=== PATIENT | male | born 1955 | race Caucasian/White ===

== ENCOUNTER → 2017-02-20 | Outpatient (CLI) | payer OTHER ==
[~2017-02-20] VITALS: Ht 152.4 cm; Wt 108.1 kg
[2017-02-20 15:09] VITALS: BP 138/87; PULSE 73; Ht 152.4 cm; Wt 108.1 kg
== END | disposition home or self-care (01) ==
LOC: C.NEUR 14:33
PROVIDERS: ATTEND Physician Assistant
DX: G47.33 Obstructive sleep apnea (adult) (pediatric) (principal)

== ENCOUNTER → 2017-05-02 | Outpatient (CLI) | payer OTHER ==
[2017-05-02 13:26] LABS: ESTIMATED AVERAGE GLUCOSE 131 mg/dl; HA1C FLAG Normal (Normal)
== END | disposition home or self-care (01) ==
LOC: C.LABPVFM 08:01
PROVIDERS: ATTEND Family Medicine
DX: K76.0 Fatty (change of) liver, not elsewhere classified (principal); R73.03 Prediabetes

== ENCOUNTER → 2017-11-11 | Outpatient (CLI) | payer OTHER ==
--- NOTE | 2017-11-11 08:37 | DIAGNOSTIC IMAGING REPORT ---
RIGHT ANKLE 3 VIEWS HISTORY: RIGHT ANKLE PAIN COMPARISON: None. FINDINGS: No acute fracture or dislocation within the right ankle. Diffuse soft tissue swelling. Small ossific densities at the distal tip of the lateral malleolus consistent with old avulsion injuries. There is also irregularity at the posterior malleolus suggestive of an old, healed fracture. Plantar and posterior calcaneal spurs are noted. No radiopaque foreign bodies. IMPRESSION: 1. No acute fracture or dislocation within the right ankle. 2. Old posttraumatic changes as described above. 3. Diffuse soft tissue swelling. Electronically signed by: Neil Galvan M.D. 11/11/2017 8:35 AM Dictated Date/Time: 11/11/2017 8:33 AM
== END ==
LOC: C.RADBC 08:01
PROVIDERS: ATTEND Nurse Practitioner Adult Health
DX: M25.571 Pain in right ankle and joints of right foot (principal)

== ENCOUNTER 2025-01-20 05:19 | Observation (INO) ==
--- NOTE | 2024-12-21 09:00 | PAT Medication Instructions ---
Medication Instructions Date of Service December 21, 2024 Home Medications Medication Instructions Recorded CPAP Supplies See Rx Instructions .Route 02/21/21 .COMPLEX #1 ea CPAP Supplies #1 ea 06/18/21 metformin 750 mg tablet,extended 750 mg PO BID #180 tabs 01/06/24 release 24 hr atorvastatin 20 mg tablet 20 mg PO QPM #90 tabs 07/07/24 pantoprazole 40 mg tablet,delayed 40 mg PO HS #90 tabs 07/11/24 release (Protonix) tamsulosin 0.4 mg capsule (Flomax) 0.4 mg PO DAILY #90 caps 08/18/24 semaglutide 0.25 mg or 0.5 mg (2 0.5 mg (0.736 mL) subcut .weekly 10/18/24 mg/3 mL) subcutaneous pen injector #4 syringes (Ozempic) meloxicam 15 mg tablet See Rx Instructions .Route .QOD metformin 750 mg tablet,extended release 24 hr 750 mg PO BID atorvastatin 20 mg tablet 20 mg PO QPM pantoprazole 40 mg tablet,delayed release (Protonix) 40 mg PO HS tamsulosin 0.4 mg capsule (Flomax) 0.4 mg PO DAILY semaglutide 0.25 mg or 0.5 mg (2 mg/3 mL) subcutaneous pen injector (Ozempic) 0.5 mg (0.736 mL) subcut .weekly Continue as directed tamsulosin 0.4 mg capsule (Flomax) 0.4 mg PO DAILY ASK your surgeon for instructions meloxicam 15 mg tablet See Rx Instructions .Route .QOD STOP 7 days prior to surgery semaglutide 0.25 mg or 0.5 mg (2 mg/3 mL) subcutaneous pen injector (Ozempic) 0.5 mg (0.736 mL) subcut .weekly DO NOT take the morning of surgery metformin 750 mg tablet,extended release 24 hr 750 mg PO BID Take evening before surgery metformin 750 mg tablet,extended release 24 hr 750 mg PO BID atorvastatin 20 mg tablet 20 mg PO QPM pantoprazole 40 mg tablet,delayed release (Protonix) 40 mg PO HS MORNING OF SURGERY: NOTHING TO EAT OR DRINK AFTER MIDNIGHT Other Notes If you have any questions please call us at [phone] or [phone] or [phone] or [phone]
--- NOTE | 2024-12-27 12:50 | Anesthesiology Consultation ---
Date of Service December 27, 2024 Assessment & Plan (1) Encounter for pre-operative examination: Chart Review Chart Review: Acceptable Risk for Surgery (pending review of routine PCP appt 01/03/25) and Patient seen in Pre Admission Testing - Awaiting routine PCP appt 01/03/25 ([place]) - Check BSG AM DOS Last dose of Ozempic scheduled 01/10/25- will be off Ozempic x 10 days by DOS on 01/20/25. Pt currently scheduled as 23 hours observation. If surgeon decides to change patient to [facility], patient would be acceptable risk for TKA, pending patient is motivated, has good support and surgeon's office completes [facility] preop requirements. Per PAT appt on 12/27/24, no recent illness/disease exposures, illness related symptoms, or recent illness/disease positive tests. Will leave to surgeon's discretion if preop Covid testing needed. Patient will be traveling to [place] 01/11/25-01/16/25 Left shoulder scope, RCR 10/30/22= Done under [facility] with Grade 2 view with MAC #3. ETT #7.5. Smooth IV induction, atraumatic DL x 1 intubation Teaching & Discussion Pre-Anesthesia Teaching/Discussion Notes: Instructed NPO after midnight before surgery,except medications with 15 cc of water. Medication instructions provided according to the PAT guidelines. History Surgery Operation Date: 01/20/25 08:00 Proposed Procedures p Right Total Knee Arthroplasty - Aditya Cho, Height/Weight Height: 5 ft 10 in Weight: 103.1 kg Allergies Allergy/AdvReac Type Severity Reaction Status Date / Time pollen extracts Allergy Unknown SNEEZING/ Verified 12/19/24 14:47 OCC COUGH No Known Drug Allergies Allergy Verified 12/19/24 14:47 Medications Home Medications Medication Instructions Recorded Confirmed Last Taken CPAP Supplies See Rx Instructions .Route 02/21/21 08/10/24 02/10/22 22:00 .COMPLEX #1 ea CPAP Supplies #1 ea 06/18/21 08/10/24 Unknown meloxicam 15 mg tablet See Rx Instructions .Route .QOD 08/31/23 12/19/24 Unknown metformin 750 mg tablet,extended 750 mg PO BID #180 tabs 01/06/24 12/19/24 Unknown release 24 hr atorvastatin 20 mg tablet 20 mg PO QPM #90 tabs 07/07/24 12/19/24 Unknown pantoprazole 40 mg tablet,delayed 40 mg PO HS #90 tabs 07/11/24 12/19/24 Unknown release (Protonix) tamsulosin 0.4 mg capsule (Flomax) 0.4 mg PO DAILY #90 caps 08/18/24 12/19/24 Unknown semaglutide 0.25 mg or 0.5 mg (2 0.5 mg (0.736 mL) subcut .weekly 10/18/24 12/19/24 Unknown mg/3 mL) subcutaneous pen injector #4 syringes ([employer]) Past Medical History Medical History Barth esophagus stable - follows with GI doctor every 5-10 years BPH (benign prostatic hyperplasia) Diabetes Esophageal dysphagia rare GERD (gastroesophageal reflux disease) well controlled and stable Hepatic steatosis Hiatal hernia History of COVID-19 2019 > not hospitalized - symptoms resolved Hyperlipidemia Osteoarthritis Seasonal allergies Sleep apnea CPAP Exercise / Class Metabolic Activity II 4-5 Yardwork/Stairs/Walk up hill (one flight of stairs - no chest pain or SOB ) Past Family History Family History Mother Diabetes Myocardial infarction Father Diabetes Prostate cancer Brother Malignant neoplasm of esophagus Denies family history of Colon cancer Ovarian cancer Breast cancer Past Surgical History Surgical History H/O umbilical hernia repair (08/16/19) Open umbilical hernia repair. Dr. Lee 08/16/19 History of colonoscopy History of esophagogastroduodenoscopy (EGD) History of vasectomy Hx of tooth extraction S/P rotator cuff repair For L RTC tear Past Anesthesia History No Hx of Anesthesia Complications and No Family Hx of Anesthesia Complications (with exception with father- slow to wake - no reintubation or ICU stay ) History of PONV No Hx of PONV and No Hx of Motion Sickness Social History Smoking Status: Former smoker tobacco type: cigarettes Do You Dip or Chew Tobacco: No Smoking End Date: quit 30+ yrs ago Hx Alcohol Use: Yes Alcohol type: beer, wine and hard liquor alcohol intake frequency: a few times a week Hx Substance Use: No substance use type: does not use Review of Systems Patient denies chest pain, shortness of breath, dyspnea on exertion, cough, wheezing, palpitations. No hx of seizures, stroke, AL. No hx of blood clots or blood transfusions Physical Exam Vital Signs VITALS BP 134/77 P 80 TEMP 97.4 SP02 96% RESP 16 Constitutional no acute distress ENMT Mouth: no TMJ clicking Thyromental Distance: < 3.5 Finger Breadths (3.0) Mallampati Class: III Full dentures on top and bottom Neck neck extension not limited Respiratory normal respiratory effort; no respiratory distress Auscultation: lungs clear to auscultation bilaterally; no wheezes Cardiovascular Rate/Rhythm: regular rate and regular rhythm Heart Sounds: no murmur Vessels: no carotid bruit Musculoskeletal Spine: no pain with cervical ROM Extremities: extremities normal to inspection Psychiatric Orientation: alert Lab Results Anesthesia Preop Results Results Anesthesia Widget: WBC 4.76 K/ul (4.8-10.8) L 12/27/24 Hgb 14.1 g/dl (14.0-18.0) 12/27/24 Hct 40.5 % (42.0-52.0) L 12/27/24 Plt 143 K/uL (130-400) 12/27/24 Na 140 mmol/L (136-145) 12/27/24 K 4.2 mmol/L (3.5-5.1) 12/27/24 Cl 107 mmol/L (98-107) 12/27/24 CO2 28 mmol/L (21-32) 12/27/24 BUN 20 mg/dl (6-23) 12/27/24 Creat 1.00 mg/dl (0.6-1.4) 12/27/24 Glucose Level 91 mg/dl (70-99(Fasting)) 12/27/24 PT 9.9 Seconds (9.0-12.0) 12/27/24 PTT 29 Seconds (21-31) 12/27/24 INR 0.9 (0.9-1.1) 12/27/24 HA1c 6.8 % (4.5-5.6) H 12/27/24 Blood Type O Positive 12/27/24 Antibody Screen NEGATIVE 12/27/24 Testing Electrocardiogram Date: 12/27/24 SR with 1st degree AV block at 78bpm. Left anterior fascicular block. When compared to EKG from Oct 24, 2022- no significant change was found per cardio Chest X-Ray Date: 12/27/24 Findings: + NAD No active cardiopulmonary disease. No other abnormalities noted. Mild degenerative changes in the thoracic spine.
[2025-01-20] MEDS: LR 60ML/HR IV SCH (05:51)
[2025-01-20] MEDS: LR 500ML BOLUS, THEN 15ML/HR IV SCH (05:51)
[2025-01-20] MEDS: dexAMETHasone**PF** 10 MG/ML VIAL IV SCH (05:52)
[2025-01-20] MEDS: FAMOTIDINE 20 MG TAB PO SCH (05:52)
[2025-01-20] MEDS: ACETAMINOPHEN 500 MG TAB PO SCH ×2 (05:52→14:10)
[2025-01-20] MEDS: GABAPENTIN 300 MG CAP PO SCH (05:52)
[2025-01-20] MEDS ORDERED: fentaNYL citrate PF 100 MCG/2 ML VIAL ONE (06:18)
[2025-01-20] MEDS ORDERED: MIDAZOLAM HCL 1 MG/ML 2ML VIAL ONE ×2 (06:18→07:13)
[2025-01-20] MEDS ORDERED: LIDOCAINE 2% 2 ML VIAL/AMP(20MG/ML) INFIL ONE ×2 (06:18→06:37)
[2025-01-20] MEDS ORDERED: BUPIVACAINE 0.5 % 5 MG/1 ML PF 10ML VIAL ONE (06:28)
[2025-01-20] MEDS ORDERED: ROPIVACAINE 0.5% 5 MG/ML 30 ML VIAL ONE (06:28)
[2025-01-20] MEDS ORDERED: DexMEDEtomidine HCL IV 100 MCG/ML VIAL IV ONE (06:36)
[2025-01-20] MEDS ORDERED: ONDANSETRON INJ 2 MG/ML 2 ML VIAL ONE (06:37)
[2025-01-20] MEDS ORDERED: PROPOFOL IV EMULSION 10 MG/ML 20 ML VIAL IV ONE ×2 (06:38)
[2025-01-20] MEDS: TRANEXAMIC ACID 1,000 MG **IV Pre-op IV SCH (06:40)
--- NOTE | 2025-01-20 06:48 | History & Physical Bridge Note ---
Date of Service January 20, 2025 History & Physical Bridge Note I have examined the patient, reviewed the History & Physical and in the interval since the performance of the History & Physical I have noted the following changes of clinical significance: no changes noted
[2025-01-20] MEDS: ceFAZolin 2000MG 2,000 MG/15 ML SYR IV SCH ×2 (06:58→14:16)
[2025-01-20] MEDS ORDERED: fentaNYL citrate PF 100 MCG/2 ML VIAL IV PRN (07:20)
[2025-01-20] MEDS ORDERED: ePHEDrine sulfate 50 MG/ML AMP IV PRN (07:20)
[2025-01-20] MEDS ORDERED: ONDANSETRON INJ 2 MG/ML 2 ML VIAL IV PRN ×2 (07:20→10:30)
[2025-01-20] MEDS ORDERED: ATROPINE SULFATE 0.1 MG/ML 10ML SYR IV PRN (07:20)
[2025-01-20] MEDS: ROPIV 0.5% 246mg, Ketorolac 30mg, EPINEPHrine 0.5mg in NSS INFIL SCH (07:29)
[2025-01-20] MEDS: ORTHO JOINT ANESTHETIC ONE (07:29)
[2025-01-20] MEDS: TRANEXAMIC ACID 1,000 MG **IV Intra-op IV SCH (08:01)
--- NOTE | 2025-01-20 08:10 | Operative Report ---
PG Post Operative Report Pre & Post Diagnosis Operation Date: 01/20/25 07:00 Pre-Op Diagnosis: Right Knee Osteoarthritis Post-Op Diagnosis: Right Knee Osteoarthritis I identified the patient and participated in the time-out.: Yes Procedure Operation Date: 01/20/25 07:00 Actual Procedures p Right Total Knee Arthroplasty(Right) - Aditya Cho DO Surgeon Aditya Cho DO Emissions Inspector Max Waite PA-C Estimated Blood Loss 50 Findings Consistent with Post-Op Diagnosis Specimens Right femoral tibial bone Description of Procedure Implants used: I used a [employer] total knee arthroplasty system with a size 9 standard femur, E tibia, 34 oval patella, and a size 11 medial congruent polyethylene bearing. All components were cemented in place with Biomet cement. Vladimir arrived [facility] for the above procedure. He was seen in the preoperative holding area and the operative extremity was identified and signed. He was given a preoperative antibiotic, TXA, a spinal anesthetic and an adductor nerve block. He was taken back to the operating room and laid on the table in supine position. He was given basic sedation. The operative knee was then prepped and draped in sterile fashion. A timeout was done, and the patient and the operative extremity was properly identified. A midline incision was made directly over the patella. Dissection was taken down to the extensor mechanism. A medial parapatellar arthrotomy was used. The medial retinaculum was released and the fat pad was mostly excised. The knee was flexed and the ACL, PCL, and meniscus were removed. A drill was sent down the center of the femoral canal followed by an intramedullary katie. Off that katie a distal femoral cutting block was placed. 9 mm was resected off the distal femur at 5 of valgus. A posterior referencing AP sizing guide was then placed on the distal femur. The femur measured to be a size 9. 2 drill holes were placed in 3 of external rotation. A 4-in-1 cutting block was then impacted into place. Anterior, posterior, and chamfer cuts were then made. The proximal tibia was then exposed. An external tibial alignment guide was placed. A tibial cut guide was then anchored in place and the proximal tibia was then resected. The posterior aspect of the knee was then opened up and any additional meniscus fragments and osteophytes were removed. The tibia measured to be a size E. The tibial plate was then placed in the appropriate rotation and the tibia was drilled and punched. Trial components were then placed. I used a size 11 medial congruent polyethylene insert. The knee was brought through a full range of motion and felt to be stable. The peg holes for the femoral component were then drilled. The patella was then everted and 9 mm was resected off the posterior aspect of the patella. The patella measured to be a size 34 oval. 3 peg holes were then drilled. A trial patella was placed. The knee was once again brought through a full range of motion and felt to be stable. Trial components were then removed. The surrounding soft tissues were injected with 100 cc of an orthopedic pain control cocktail. All components were then cemented into place with Biomet cement. The final polyethylene insert was then snapped into place. Once cement was dry the tourniquet was deflated. Hemostasis was obtained. The joint was then irrigated with normal saline solution. The medial parapatellar arthrotomy was then closed with #1 Vicryl suture. The skin was closed with 2-0 Vicryl, 3-0V lock suture, and diana. A soft compressive dressing was placed. He was then transferred to a hospital bed and taken to the postanesthesia care unit in stable condition. He tolerated the procedure well. Max Waite PA-C, was present for the entire procedure. He was critical for patient positioning, prepping, draping, retraction exposure, wound closure and application of sterile dressing. I attest to the content of the Intraoperative Record and any orders documented therein. Any exceptions are noted below.
--- NOTE | 2025-01-20 09:03 | XRay Report ---
XR knee RT 1 or 2V routine CLINICAL HISTORY: Surgical Post Op COMPARISON: 05/11/2024 FINDINGS: Right knee prosthesis shows no hardware complication. There is expected soft tissue gas. S kin diana are present. IMPRESSION: Unremarkable postoperative exam. ACT 112: Negative or not required by law. Electronically signed by: Sourav Salinas M.D. 01/20/2025 9:01 AM
[2025-01-20] MEDS ORDERED: PHARMACY GLYCEMIC MGMT CONSULT PRN (10:30)
[2025-01-20] MEDS ORDERED: NALOXONE HCL 0.4 MG/1 ML VIAL/CARP IV PRN (10:30)
[2025-01-20] MEDS ORDERED: NON-FORMULARY MEDICATION (Metformin 750 mg tablet extended release 24 hr) PO SCH (10:30)
[2025-01-20] MEDS ORDERED: oxyCODONE HCL IR 5 MG TAB (IMMEDIATE RELEASE) PO PRN (10:30)
[2025-01-20] MEDS ORDERED: METOCLOPRAMIDE HCL INJ 5 MG/ML 2 ML VIAL IV PRN (10:30)
[2025-01-20] MEDS ORDERED: MAGNESIUM HYDROXIDE SUSP 30 ML UDC PO PRN (10:30)
[2025-01-20] MEDS ORDERED: NON-FORMULARY MEDICATION (Cpap Supplies misc) SCH (10:30)
[2025-01-20] MEDS ORDERED: NON-FORMULARY MEDICATION (Semaglutide [Ozempic] 0.25 mg or 0.5 mg (2 mg/3 mL) pen injector SQ SCH (10:30)
[2025-01-20] MEDS ORDERED: HYDROmorphone INJ 0.5 MG/0.5 ML SYR IV PRN (10:30)
[2025-01-20] MEDS ORDERED: bisacodyL 10 MG SUPP PR PRN (10:30)
--- NOTE | 2025-01-20 11:00 | Anesthesiology Progress Note ---
Date of Service January 20, 2025 Anesthesia Post Procedure Vital Signs Vital Signs: Temp Pulse Pulse Resp BP Pulse Ox O2 Del Method 01/20/25 10:38 97.5 F L 72 16 115/71 96 Nasal Cannula 01/20/25 10:34 Nasal Cannula 01/20/25 09:50 72 16 118/67 95 Nasal Cannula 01/20/25 09:35 97.7 F 72 16 115/69 95 Nasal Cannula 01/20/25 09:25 73 12 120/69 94 Nasal Cannula 01/20/25 09:15 71 16 117/69 94 Room Air 01/20/25 09:05 74 18 110/66 97 Oxymask 01/20/25 08:55 74 20 113/71 97 Oxymask 01/20/25 08:45 74 16 106/66 97 Oxymask 01/20/25 08:35 75 20 102/70 97 Oxymask 01/20/25 08:28 97.2 F L 82 18 101/64 95 Oxymask 01/20/25 05:44 97.5 F L 79 18 152/93 H 97 Room Air O2 Flow Rate 01/20/25 10:38 2 01/20/25 10:34 2 01/20/25 09:50 2 01/20/25 09:35 2 01/20/25 09:25 2 01/20/25 09:15 01/20/25 09:05 4 01/20/25 08:55 4 01/20/25 08:45 4 01/20/25 08:35 4 01/20/25 08:28 6 01/20/25 05:44 Transfer of Care Handoff Completed per policy Notes Mental Status: alert / awake / arousable and participated in evaluation Patient Amnestic to Procedure: Yes Nausea / Vomiting: adequately controlled Pain: adequately controlled Airway Patency, RR, SpO2: stable & adequate BP & HR: stable & adequate Hydration State: stable & adequate Neuraxial Anesthesia: was administered and sensory block is resolving Anesthetic Complications: no major complications apparent and Pt Satisfied with anesthetic care
[2025-01-20] MEDS ORDERED: INSULIN ASPART PER UNIT CHARGE SC SCH (11:30)
[2025-01-20] MEDS: MULTIVITAMIN TAB PO SCH (12:21)
[2025-01-20] MEDS: TAMSULOSIN HCL 0.4 MG CAP PO SCH (12:21)
[2025-01-20] MEDS: DOCUSATE SODIUM 100 MG CAP PO SCH (12:21)
[2025-01-20] MEDS: KETOROLAC TROMETHAMINE 15 MG/ML VIAL IV SCH (12:23)
[2025-01-20] MEDS ORDERED: ceFAZolin 1000MG 1,000 MG/7.5 ML SYR IV SCH (14:30)
[2025-01-20] MEDS: metFORMIN HCL 500 MG TAB PO SCH (16:36)
[2025-01-20] MEDS: SENNA 8.6 MG TAB PO SCH (20:42)
[2025-01-20] MEDS: ATORVASTATIN 20 MG TAB PO SCH (20:43)
[2025-01-20] MEDS: ASPIRIN 81 MG ECTAB PO SCH (20:43)
[2025-01-20] MEDS: PANTOprazole 40 MG TAB PO SCH (20:43)
[2025-01-21 05:38] VITALS: TEMP 97.7
[2025-01-21 07:23] VITALS: RESP 16; O2SAT 97
[2025-01-21 07:46] VITALS: BP 132/84; PULSE 81
--- NOTE | 2025-01-21 08:19 | Orthopedic Progress Note ---
Date of Service January 21, 2025 Assessment & Plan (1) Status post right knee replacement: Overall he is doing very well. He is not having much pain in the right knee. He will be seen by physical therapy today for ambulation and range of motion exercises. The nursing staff can change his dressing after physical therapy. He is on aspirin for DVT prophylaxis. He can be discharged home later today. He will follow-up with orthopedics in 2 weeks. Jaimee Gilbert was seen and examined at bedside this morning. Overall is doing fairly well. He is not having too much pain in the right knee. He has been up and ambulating to the bathroom. He has no complaints.. Review of Systems All systems reviewed & are unremarkable except as noted in HPI & below. Physical Exam On physical exam of the right knee, the dressing is clean and dry. His leg is out full extension. He has active dorsiflexion plantarflexion of his right ankle.. Results & Data Results & Data Laboratory Results . Diagnostic Findings Postoperative x-rays of the right knee show the prosthesis to be in anatomic alignment without any evidence of fracture complication, or loosening.. PG Care Time/CCT Total # of Minutes Spent Total Time Spent with Patient: Total time spent is greater than 50% in coordination of care (as documented) at patient's floor/unit and/or counseling patient: Coding Level of Care Code 18822 Post Operative Follow-Up Diagnoses Status post right knee replacement Z96.651
--- NOTE | 2025-01-21 08:20 | Discharge Summary ---
Date of Service January 21, 2025 Principal Diagnosis Same as "Discharge Diagnosis" noted below under Discharge Instructions. Discharge Exam On physical exam of the right knee, the dressing is clean and dry. His leg is out full extension. He has active dorsiflexion plantarflexion of his right ankle.. Discharge Data Procedures Performed Operation Date: 01/20/25 07:00 Actual Procedures p Right Total Knee Arthroplasty(Right) - Aditya Cho DO Ordered Studies 01/20/25 05:00 US - OR guided needle placemen Routine Hospital Course (1) Status post right knee replacement: On January 20, 2025 Vladimir arrived at [facility] and underwent a right knee replacement without complication. He had a spinal anesthetic. Postoperatively, he was started on aspirin for DVT prophylaxis and transferred to the general orthopedic floors. His hospital course was uneventful. On postop day #1, his vital signs were stable and his pain was well-controlled. He was able to participate well with physical therapy doing ambulation and range of motion exercises. He was then discharged to home. He will follow-up with orthopedics in 2 weeks. PG Care Time/CCT Total # of Minutes Spent Total Time Spent with Patient: Total time spent is greater than 50% in coordination of care (as documented) at patient's floor/unit and/or counseling patient: Discharge Plan Discharge Items Patient Disposition: Home - Self-Care Reason For Visit: Right Knee Osteoarthritis Discharge Diagnosis: Right knee replacement Activity: Per Instructions section Non-emergency contact: Surgeon Call non-emergency contact if: your wound has increased redness and your wound has increased drainage Follow-up/Referrals: Amadou Brower DO [Primary Care Provider] - Diet: Regular Addtl Attending Provider Instructions: Activity and Therapy Recommendations: * If you are using [facility] then therapy will be provided at your home until they feel you have accomplished all of your goals. * If you are using [facility] then Physical Therapy will be provided until they feel you are ready to start Outpatient Physical Therapy. * If you are not using home therapy then Outpatient Physical Therapy should start about 3-5 days from your day of surgery. Therapy will last about 6-10 weeks * It is important not to put a pillow under your knee when you are relaxing or sleeping. It is just as important to make sure you are getting your knee perfectly straight as it is to regain your knee bend. * You were shown a series of exercises in the hospital. Do these exercises three times each day including the exercises you were shown in physical therapy. * Get up and walk several times each day. For the first four weeks, try not to stand or walk for more than one hour at a time. If you do stand or walk for more than one hour, you will not hurt anything, but your leg will likely swell. * As you feel comfortable, you may change from the walker or crutches to a cane and then to independent walking. Medications: * Narcotic You will likely be sent home from the hospital with a prescription for the narcotic pain medication that worked best throughout your stay. * Cefadroxil -take the antibiotic twice a day for 10 days to help prevent infection. * Aspirin Most patients will be required to take Aspirin 81mg twice a day for 6 weeks after surgery. This is obtained [id number] and a prescription is not necessary. * Other medications may be prescribed for specific circumstances. If you have any questions, please call the office at . * Resume previous home medications unless otherwise instructed TEDs/Elastic Stockings: The white elastic stockings help limit swelling and prevent blood clots from forming in your legs.~ The more you wear them, the more they work. Wear them for 2 weeks. Dressing Care: The dressing can be changed after physical therapy on postop day #1. Daily dry dressing changes for a few days, especially if the incision is still draining some. If the incision is not draining then you may leave the diana open to air. If there is a little bit of drainage or if the diana are getting stuck on your clothing then cover the incision with a dry dressing. The diana will be removed at your 2 week follow-up appointment. Showering: You may shower 5 days from the day of surgery as long as the incision is no shayla rosibel draining. You may shower with the diana exposed. Let soapy water run over the diana and pat them dry. Do not scrub or soak the incision. Diet: You may resume your previous diet. Things To Watch For: * Drainage from the incision site that occurs more than one week after your surgery. * Increased redness at the incision site. * Fever above 102 degrees Fahrenheit. * Unusual chest pain or shortness of breath. * Call [facility] at with any of the above problems Follow-Up Visit: Follow-up with Dr. Cho's office 2-3 weeks after your day of surgery. We will remove your diana and answer any questions. If you have any additional questions or concerns, Dr Cho is usually in the office at the same time and will be available An appointment was probably scheduled when you signed-up for surgery in the office. If you have any questions call Office Instructions: More detailed instructions as well as Frequently Asked Questions were provided in a folder by our office when you signed-up for surgery. Please review these instructions when you get home. If you have any further questions or concerns, please feel free to call the office at [phone] Pending Studies at Discharge: No Stand-Alone Forms: My [facility], Smoking Cessation Medications and DC Order Prescriptions: New aspirin 81 mg Tablet,Delayed Release (Dr/Ec) 81 mg PO BID 42 Days Qty: 84 0RF cefadroxil 500 mg capsule 500 mg PO BID 10 Days Qty: 20 0RF oxycodone 5 mg tablet 5 mg PO Q6H PRN (Reason: pain) Qty: 30 0RF Continued (DME) CPAP Supplies Misc See Rx Instructions .Route Qty: 1 0RF Rx Instructions: new tubing and supplies atorvastatin 20 mg tablet 20 mg PO QPM Qty: 90 3RF pantoprazole [Protonix] 40 mg tablet,delayed release (DR/EC) 40 mg PO HS Qty: 90 1RF tamsulosin [Flomax] 0.4 mg capsule 0.4 mg PO DAILY Qty: 90 3RF Ozempic 0.25 mg or 0.5 mg (2 mg/3 mL) pen injector 0.5 mg subcut .weekly Qty: 4 2RF CPAP Supplies Misc See Rx Instructions .ROUTE .COMPLEX Qty: 1 0RF Rx Instructions: Tubing mask filters and supplies as needed. Lifetime need. [employer]; meloxicam 15 mg tablet See Rx Instructions .ROUTE .QOD Dose Instruction: TAKE 1 TABLET BY MOUTH IN THE EVENING Rx Instructions: TAKE 1 TABLET BY MOUTH IN THE EVENING QOD; metformin 750 mg tablet extended release 24 hr 750 mg PO BID Qty: 180 3RF Discharge Orders: Discharge Order (Routine); Ordered 04/26/25 Ordered By: Aditya Cho Admission Data Admit Date/Time: 01/20/25 09:31 Attending Provider: Aditya Cho Admit Provider: Aditya Cho Primary Care Provider: Amadou Brower
== END 2025-01-21 11:14 | disposition home or self-care (01) ==
LOC: 3E 05:19 → ASU 05:19